=== PATIENT | male | born 1995 | race Caucasian/White ===

== ENCOUNTER 2016-12-17 14:21 | Emergency (ER) | payer OTHER ==
[2016-12-17] MEDS ORDERED: NS 0.9% 1000 ML* 1,000 ML IV SCH (14:45)
[2016-12-17 15:05] LABS: Add Diff/Slide Review? Slide Review Added; Comments Flag Yes; Hematocrit 45 % (42-52); Hemoglobin 16.3 g/dl (14.0-18.0); Mean Corpuscular HGB Conc 36 g/dl (31-36); Mean Corpuscular Hemoglobin 30 pg (27-31); Mean Corpuscular Volume 84 fL (80-94); Mean Platelet Volume 8 um3 (7.4-10.4); Red Blood Count 5.42 10^6/ul (4.0-5.4); Red Cell Distribution Width 12 % (10.5-15); White Blood Count 8.6 10^3/ul (3.5-10.8)
[2016-12-17 15:15] LABS: ALT 43 U/L (7-52); AST 34 U/L (13-39); Albumin 4.7 g/dL (3.2-5.2); Alkaline Phosphatase 93 U/L (34-104); Anion Gap 9 mmol/L (2-11); BUN/Creatinine Ratio 13.7 (8-20); Blood Urea Nitrogen 13 mg/dL (6-24); C Reactive Protein < 1.00 mg/L (< 5.00); CO2 Carbon Dioxide 25 mmol/L (22-32); Calcium 9.8 mg/dL (8.6-10.3); Chloride 102 mmol/L (101-111); Creatine Kinase 295 U/L (10-223); EGFR African American 128.7 (>60); EGFR Non-African American 100.1 (>60); Globulin 2.5 g/dL (2-4); Glucose 91 mg/dL (70-100); Lipase < 10 U/L (11.0-82.0); Potassium 3.8 mmol/L (3.5-5.0); Sodium 136 mmol/L (133-145); Total Protein 7.2 g/dL (6.4-8.9)
[2016-12-17] MEDS: NS 0.9% 1000 ML* 2,000 ML IV ONE ×2 (15:15→16:41)
--- NOTE | 2016-12-17 15:44 | RAD ---
Indication: Chest pain and pressure. Cardiovascular disease. Comparison: No relevant prior exams available on the [facility] for comparison. Technique: Upright AP 1515 hours Report: Clear lungs and pleural spaces. Negative for pneumothorax. The heart, pulmonary vasculature, and mediastinal contours are unremarkable. Unremarkable osseous structures and soft tissue contours. IMPRESSION: No evidence for acute intrathoracic disease.
[2016-12-17 15:46] LABS: TSH (Thyroid Stimulating Horm) 1.37 mcIU/mL (0.34-5.60)
[2016-12-17 16:21] LABS: Urine Bilirubin Negative (Negative); Urine Glucose Negative (Negative); Urine Nitrite Negative (Negative)
--- NOTE | 2016-12-17 17:09 | ED ---
HPI Chest Pain - HPI Summary HPI Summary: Patient is an otherwise healthy 21yo M who presents to the ED with 1 hour onset of acute midsternal chest pain described as a dull ache. After arrival, he states the pain moved to the lateral left ribs where it has remained during his stay. The pain began 1 hour prior to arrival while studying at rest. He did not take medications for relief. He denies travel history, smoking. He notes to hx of GERD but states his symptoms are usually more burning and not aching. 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 He has been on Norvasc since 9th grade and his BP remains stable since on the medication. Last US 4 years ago. He denies history of chest pain or discomfort. He denies any SOB. The pain is described as an ache, better with recumbent position and rest and worse with upright position. Recent hx includes extra stressors from school, excess caffeine this week and drinking ETOH to excess. He states he is somewhat dehydrated as well. Grandfather had KS/Stroke, denies other family history. Mother has anxiety attacks, but he denies personal history. - History of Current Complaint Chief Complaint: EDChestPainROMI Time Seen by Provider: 12/17/16 15:24 Hx Obtained From: Patient Onset/Duration: Started Hours Ago Time of Onset: 01:00 Timing: Constant Initial Severity: Mild Current Severity: Mild Pain Intensity: 3 Pain Scale Used: 0-10 Numeric Chest Pain Location: Mid Sternal Chest Pain Radiates: No Character: Dull/Aching Aggravating Factor(s): Nothing, Other: - upright position Alleviating Factor(s): Rest, Position, Other: - recumbent position Associated Signs and Symptoms: Positive: Chest Pain - Risk Factors Pulmonary Embolism Risk Factors: Negative TAD Risk Factors: Negative - Allergy/Home Medications Allergies/Adverse Reactions: Allergies Allergy/AdvReac Type Severity Reaction Status Date / Time No Known Allergies Allergy Verified 01/03/16 12:37 PMH/Surg Hx/FS Hx/Imm Hx Previously Healthy: Yes Endocrine/Hematology History: Denies: Hx Diabetes, Hx Thyroid Disease Cardiovascular History: Reports: Hx Hypertension - ON MEDICATION FOR Denies: Hx Pacemaker/ICD Respiratory History: Denies: Hx Asthma, Hx Chronic Obstructive Pulmonary Disease (COPD) GI History: Denies: Hx Ulcer History: Denies: Hx Renal Disease Sensory History: Reports: Hx Contacts or Glasses - INSTRUCTS GIVEN Denies: Hx Hearing Aid Opthamlomology History: Reports: Hx Contacts or Glasses - INSTRUCTS GIVEN Psychiatric History: Denies: Hx Panic Disorder - Surgical History Surgery Procedure, Year, and Place: RIGHT KNEE SURGERY 2013-[place] Hx Anesthesia Reactions: No - Immunization History Hx Pertussis Vaccination: No Immunizations Up to Date: Unable to Obtain/Confirm Infectious Disease History: No Infectious Disease History: Denies: Hx Hepatitis, Hx Human Immunodeficiency Virus (HIV), Traveled Outside the US in Last 30 Days - Social History Occupation: Student Lives: With Family Alcohol Use: Weekly Alcohol Amount: weekend drinking - from sunday to 12 beers Hx Substance Use: No Substance Use Type: Reports: None Hx Tobacco Use: No Smoking Status (MU): Never Smoked Tobacco Review of Systems Constitutional: Negative Negative: Fever, Chills, Fatigue Eyes: Negative Positive: Chest Pain Respiratory: Negative Negative: Shortness Of Breath, Cough Negative: Abdominal Pain, Vomiting Positive: no symptoms reported Positive: Arthralgia - left sided chest pain Neurological: Negative Negative: Headache, Weakness Psychological: Normal All Other Systems Reviewed And Are Negative: Yes Physical Exam Triage Information Reviewed: Yes Vital Signs On Initial Exam: Initial Vitals Temp Pulse Resp BP Pulse Ox 98.5 F 77 18 147/74 98 12/17/16 14:24 12/17/16 14:24 12/17/16 14:24 12/17/16 14:24 12/17/16 14:24 Vital Signs Reviewed: Yes Appearance: Positive: Well-Appearing, Well-Nourished Skin: Positive: Warm, Skin Color Reflects Adequate Perfusion Head/Face: Positive: Normal Head/Face Inspection Eyes: Positive: EOMI, CORKY, Conjunctiva Clear Neck: Positive: Supple, No Lymphadenopathy Respiratory/Lung Sounds: Positive: Clear to Auscultation, Breath Sounds Present Cardiovascular: Positive: Normal, RRR, Pulses are Symmetrical in both Upper and Lower Extremities Musculoskeletal: Positive: Normal, Strength/ROM Intact, Pain @ - reproducible pain to the left anterior chest Neurological: Positive: Speech Normal Psychiatric: Positive: Normal AVPU Assessment: Alert - Coco Coma Scale Coma Scale Total: 15 Diagnostics - Vital Signs Vital Signs Temp Pulse Resp BP Pulse Ox 12/17/16 16:00 68 16 132/59 98 12/17/16 15:30 79 16 144/65 99 12/17/16 15:00 80 16 152/69 99 12/17/16 14:40 137/66 12/17/16 14:37 64 98 12/17/16 14:24 98.5 F 77 18 147/74 98 - Laboratory Lab Results: Lab Results 12/17/16 12/17/16 12/17/16 Range/Units 14:49 14:49 14:49 WBC 8.6 (3.5-10.8) 10^3/ul RBC 5.42 H (4.0-5.4) 10^6/ul Hgb 16.3 (14.0-18.0) g/dl Hct 45 (42-52) % MCV 84 (80-94) fL MCH 30 (27-31) pg MCHC 36 (31-36) g/dl RDW 12 (10.5-15) % Plt Count 265 (150-450) 10^3/ul MPV 8 (7.4-10.4) um3 Neut % (Auto) 67.4 (38-83) % Lymph % (Auto) 22.8 L (25-47) % [place] % (Auto) 7.6 (1-9) % Eos % (Auto) 1.6 (0-6) % Baso % (Auto) 0.6 (0-2) % Absolute Neuts (auto) 5.8 (1.5-7.7) 10^3/ul Absolute Lymphs (auto) 2.0 (1.0-4.8) 10^3/ul Absolute Monos (auto) 0.7 (0-0.8) 10^3/ul Absolute Eos (auto) 0.1 (0-0.6) 10^3/ul Absolute Basos (auto) 0.1 (0-0.2) 10^3/ul Absolute Nucleated RBC 0.08 10^3/ul Nucleated RBC % 1.0 INR (Anticoag Therapy) 0.88 L (0.89-1.11) APTT 28.2 (26.0-36.3) seconds D-Dimer, Quantitative < 200 (Less Than 230) ng/mL Sodium 136 (133-145) mmol/L Potassium 3.8 (3.5-5.0) mmol/L Chloride 102 (101-111) mmol/L Carbon Dioxide 25 (22-32) mmol/L Anion Gap 9 (2-11) mmol/L BUN 13 (6-24) mg/dL Creatinine 0.95 (0.67-1.17) mg/dL Est GFR ( Amer) 128.7 (>60) Est GFR (Non-Af Amer) 100.1 (>60) BUN/Creatinine Ratio 13.7 (8-20) Glucose 91 (70-100) mg/dL Lactic Acid (0.5-2.0) mmol/L Calcium 9.8 (8.6-10.3) mg/dL Magnesium 2.0 (1.9-2.7) mg/dL Total Bilirubin 0.70 (0.2-1.0) mg/dL AST 34 (13-39) U/L ALT 43 (7-52) U/L Alkaline Phosphatase 93 (34-104) U/L Total Creatine Kinase 295 H (10-223) U/L CK-MB (CK-2) 5.4 (0.6-6.3) ng/mL Troponin I 0.00 (<0.04) ng/mL C-Reactive Protein < 1.00 (< 5.00) mg/L Total Protein 7.2 (6.4-8.9) g/dL Albumin 4.7 (3.2-5.2) g/dL Globulin 2.5 (2-4) g/dL Albumin/Globulin Ratio 1.9 (1-3) Lipase < 10 L (11.0-82.0) U/L TSH 1.37 (0.34-5.60) mcIU/mL Urine Color Urine Appearance Urine pH (5-9) Ur Specific [place] (1.010-1.030) Urine Protein (Negative) Urine Ketones (Negative) Urine Blood (Negative) Urine Nitrate (Negative) Urine Bilirubin (Negative) Urine Urobilinogen (Negative) Ur Leukocyte Esterase (Negative) Urine Glucose (Negative) 12/17/16 12/17/16 Range/Units 14:49 16:08 WBC (3.5-10.8) 10^3/ul RBC (4.0-5.4) 10^6/ul Hgb (14.0-18.0) g/dl Hct (42-52) % MCV (80-94) fL MCH (27-31) pg MCHC (31-36) g/dl RDW (10.5-15) % Plt Count (150-450) 10^3/ul MPV (7.4-10.4) um3 Neut % (Auto) (38-83) % Lymph % (Auto) (25-47) % [place] % (Auto) (1-9) % Eos % (Auto) (0-6) % Baso % (Auto) (0-2) % Absolute Neuts (auto) (1.5-7.7) 10^3/ul Absolute Lymphs (auto) (1.0-4.8) 10^3/ul Absolute Monos (auto) (0-0.8) 10^3/ul Absolute Eos (auto) (0-0.6) 10^3/ul Absolute Basos (auto) (0-0.2) 10^3/ul Absolute Nucleated RBC 10^3/ul Nucleated RBC % INR (Anticoag Therapy) (0.89-1.11) APTT (26.0-36.3) seconds D-Dimer, Quantitative (Less Than 230) ng/mL Sodium (133-145) mmol/L Potassium (3.5-5.0) mmol/L Chloride (101-111) mmol/L Carbon Dioxide (22-32) mmol/L Anion Gap (2-11) mmol/L BUN (6-24) mg/dL Creatinine (0.67-1.17) mg/dL Est GFR ( Amer) (>60) Est GFR (Non-Af Amer) (>60) BUN/Creatinine Ratio (8-20) Glucose (70-100) mg/dL Lactic Acid 1.0 (0.5-2.0) mmol/L Calcium (8.6-10.3) mg/dL Magnesium (1.9-2.7) mg/dL Total Bilirubin (0.2-1.0) mg/dL AST (13-39) U/L ALT (7-52) U/L Alkaline Phosphatase (34-104) U/L Total Creatine Kinase (10-223) U/L CK-MB (CK-2) (0.6-6.3) ng/mL Troponin I (<0.04) ng/mL C-Reactive Protein (< 5.00) mg/L Total Protein (6.4-8.9) g/dL Albumin (3.2-5.2) g/dL Globulin (2-4) g/dL Albumin/Globulin Ratio (1-3) Lipase (11.0-82.0) U/L TSH (0.34-5.60) mcIU/mL Urine Color Colorless Urine Appearance Clear Urine pH 5.0 (5-9) Ur Specific [place] 1.010 (1.010-1.030) Urine Protein Negative (Negative) Urine Ketones Negative (Negative) Urine Blood Negative (Negative) Urine Nitrate Negative (Negative) Urine Bilirubin Negative (Negative) Urine Urobilinogen Negative (Negative) Ur Leukocyte Esterase Negative (Negative) Urine Glucose Negative (Negative) Result Diagrams: 12/17/16 14:49 12/17/16 14:49 Lab Statement: Any lab studies that have been ordered have been reviewed, and results considered in the medical decision making process. Chest Pain Course/Dx - Course Course Of Treatment: Patient evaluated for chest pain x 1 hour misternally which has moved to the left lateral side. EKG NSR. Chest xray shows no acute changes. Lab work OK except for slight dehydration. 2 bags IV NS given. Patient notes to drinking 12 beers x 2 days and dehydration. Trop and D-dimer negative. Patient made aware of results and is OK for discharge. Toradol 30mg IV given. Pain is likely muscular or related to some anxiety symptoms. He is encouraged to return if symptoms remain or fail to improve with ibuprofen. Discontinue drinking ETOH, drink plenty of water and follow up with PCP in 2-3 days. Discussed treatment options including the possibile need for an echo if symptoms remain. Patient feels improves upon staying in the ED and would like to be discharged. - Chest Pain Differential Diagnosis/HQI/PQRI: ACS, Angina, Chest Wall - Diagnoses Provider Diagnoses: Chest wall pain Discharge - Discharge Plan Condition: Stable Disposition: HOME Patient Education Materials: Chest Wall Pain (ED), Chest Pain (ED) Additional Instructions: Follow up with [facility] if symptoms persist If you develop worsening pain, you need to return to the ED immediately Ibuprofen 600mg three times if any muscular symptoms remain.
[2016-12-17] MEDS ORDERED: Ketorolac INJ* 30 MG/ML 1 ML VIAL IV PUSH ONE (17:31)
[2016-12-17 18:42] VITALS: BP 153/75
== END 2016-12-17 18:42 | disposition home or self-care (01) ==
LOC: ED 14:21
DX: R07.89 Other chest pain (principal); I10 Essential (primary) hypertension
CPT/HCPCS: 36415; 71010; 80053; 81003; 82550; 82553; 83605; 83690; 83735; 84443; 84484; 85025; 85379; 85610; 85730; 86140; 93005; 96360; 96361; 96374; 99284; J1885

== ENCOUNTER 2016-12-17 21:38 | Emergency (ER) | payer OTHER ==
[2016-12-17] MEDS ORDERED: NS 0.9% 1000 ML* 1,000 ML IV ONE (22:39)
[2016-12-17] MEDS ORDERED: Pantoprazole IV* 40 MG IV ONE (22:43)
[2016-12-17] MEDS ORDERED: Iohexol 350* (CONTRAST) 500 ML MDV IV ONE (23:21)
[2016-12-17 23:52] LABS: Hematocrit 43 % (42-52); Hemoglobin 15.3 g/dl (14.0-18.0); Mean Corpuscular HGB Conc 36 g/dl (31-36); Mean Corpuscular Hemoglobin 30 pg (27-31); Mean Corpuscular Volume 85 fL (80-94); Mean Platelet Volume 8 um3 (7.4-10.4); Red Blood Count 5.11 10^6/ul (4.0-5.4); Red Cell Distribution Width 12 % (10.5-15); White Blood Count 9.6 10^3/ul (3.5-10.8)
[2016-12-18 00:06] LABS: Albumin 4.5 g/dL (3.2-5.2); Calcium 9.7 mg/dL (8.6-10.3); EGFR African American 144.4 (>60); EGFR Non-African American 112.3 (>60); Globulin 2.1 g/dL (2-4); Magnesium 2.2 mg/dL (1.9-2.7); Potassium 3.5 mmol/L (3.5-5.0); Total Bilirubin 0.6 mg/dL (0.2-1.0); Total Protein 6.6 g/dL (6.4-8.9)
[2016-12-18 00:15] LABS: TSH (Thyroid Stimulating Horm) 1.88 mcIU/mL (0.34-5.60)
[2016-12-18] MEDS ORDERED: Al Hydrox/Mg Hydrox/Simet LIQ* 30 ML UDC PO ONE (00:37)
[2016-12-18] MEDS ORDERED: Lidocaine 2% VISCOUS* 15 ML UDC PO ONE (00:37)
[2016-12-18 01:32] VITALS: BP 136/74
[2016-12-18 01:34] LABS: Benzodiazepine Urine Screen None Detected (None Detect)
--- NOTE | 2016-12-18 07:53 | RAD ---
HISTORY: Chest pain COMPARISONS: None TECHNIQUE: Multiple contiguous axial CT scans of the chest were obtained without intravenous contrast. Coronal and sagittal multiplanar reformations are also submitted for review. FINDINGS: Evaluation is limited by patient motion artifact which limits evaluation of the segmental branches to the lower lobes bilaterally. NECK AND THYROID: The lower neck and thyroid are unremarkable. CHEST WALL: There is no lower cervical, axillary, or supraclavicular lymphadenopathy by size criteria. HEART AND PERICARDIUM: The heart is unremarkable. AORTA AND PULMONARY VASCULATURE: The aorta and pulmonary vasculature are normal. MEDIASTINUM: There is no mediastinal lymphadenopathy by size criteria. There is minimal residual thymic tissue in anterior mediastinum, likely normal for age. EDUARDO: There is no hilar lymphadenopathy by size criteria. AIRWAY AND ESOPHAGUS: The airway is unremarkable, without endobronchial filling defect. The esophagus is grossly normal. LUNG PARENCHYMA: The lungs are clear. PLEURA: No pleural abnormalities are noted. UPPER ABDOMEN: The upper abdomen is unremarkable. The spleen is at the upper limits of normal in size. BONES AND SOFT TISSUES: No bone or soft tissue abnormalities are noted. OTHER: None. IMPRESSION: NO PULMONARY ARTERIAL FILLING DEFECT TO SUGGEST PULMONARY EMBOLISM.
--- NOTE | 2016-12-18 13:09 | ED ---
Calvin Beltran Rebecca, scribed for Zaynab Josue MD on 12/17/16 at 2218 . HPI Chest Pain - HPI Summary HPI Summary: Pt is a 21 y/o M who presents to ED c/o midsternal CP. Pain began earlier today at 1300 as a "tingling kind of burning and pressure." He initially believed it to be GERD so he took an OTC antacid which did not improve sx. He was then evaluated by [facility] ED where a CXR, EKG and blood work was done and he was D/C to home at approximately 1830/1900 after the pain moved slightly laterally to the left, IV Toradol and sx improvement. He had made dinner at home, then about 10 minutes after, the CP had returned. The pain is now back to being midsternal and is characterized as burning and pressure. Pain is currently moderate, ranked 6/10. Sx aggravated and alleviated by nothing. Additionally c/o nausea ( resolved). Denies SOB, calf tenderness. FHx Factor V Leiden (grandfather). Follows up with Dr. Crabtree at [facility]. - History of Current Complaint Chief Complaint: EDChestPainROMI Time Seen by Provider: 12/17/16 22:11 Hx Obtained From: Patient Onset/Duration: Started Hours Ago, Still Present Time of Onset: 13:00 Current Severity: Moderate Pain Intensity: 6 Pain Scale Used: 0-10 Numeric Chest Pain Location: Mid Sternal Chest Pain Radiates: No Character: Burning, Pressure/Squeezing Aggravating Factor(s): Nothing Alleviating Factor(s): Nothing Associated Signs and Symptoms: Positive: Nausea - resolved. Negative: Shortness of Breath, Calf Pain/Swelling - Allergy/Home Medications Allergies/Adverse Reactions: Allergies Allergy/AdvReac Type Severity Reaction Status Date / Time No Known Allergies Allergy Verified 01/03/16 12:37 PMH/Surg Hx/FS Hx/Imm Hx Endocrine/Hematology History: Denies: Hx Diabetes, Hx Thyroid Disease Cardiovascular History: Reports: Hx Hypertension - ON MEDICATION FOR Denies: Hx Pacemaker/ICD Respiratory History: Denies: Hx Asthma, Hx Chronic Obstructive Pulmonary Disease (COPD) GI History: Denies: Hx Ulcer History: Denies: Hx Renal Disease Sensory History: Reports: Hx Contacts or Glasses - INSTRUCTS GIVEN Denies: Hx Hearing Aid Opthamlomology History: Reports: Hx Contacts or Glasses - INSTRUCTS GIVEN Psychiatric History: Denies: Hx Panic Disorder - Surgical History Surgery Procedure, Year, and Place: RIGHT KNEE SURGERY 2013-[place] Hx Anesthesia Reactions: No Infectious Disease History: No Infectious Disease History: Denies: Hx Hepatitis, Hx Human Immunodeficiency Virus (HIV), Traveled Outside the [place] in Last 30 Days - Family History Known Family History: Positive: Other - Factor V Leiden (grandfather) - Social History Occupation: [employer] Alcohol Use: Weekly Alcohol Amount: weekend drinking - from sunday to 12 beers Hx Substance Use: No Substance Use Type: Reports: None Hx Tobacco Use: No Smoking Status (MU): Never Smoked Tobacco Review of Systems Positive: Chest Pain - Midsternal Negative: Shortness Of Breath Positive: Nausea - resolved Positive: Other - NEGATIVE: calf tenderness All Other Systems Reviewed And Are Negative: Yes Physical Exam Triage Information Reviewed: Yes Vital Signs On Initial Exam: Initial Vitals Temp Pulse Resp BP Pulse Ox 98.1 F 71 20 160/88 98 12/17/16 21:41 12/17/16 21:41 12/17/16 21:41 12/17/16 21:41 12/17/16 21:41 Vital Signs Reviewed: Yes Appearance: Positive: Well-Appearing, Well-Nourished, Pain Distress Skin: Positive: Warm, Skin Color Reflects Adequate Perfusion Head/Face: Positive: Normal Head/Face Inspection Eyes: Positive: Normal ENT: Positive: Normal ENT inspection Neck: Positive: Supple Respiratory/Lung Sounds: Positive: Clear to Auscultation, Breath Sounds Present Cardiovascular: Positive: RRR, Pulses are Symmetrical in both Upper and Lower Extremities, Other - Brisk capillary refill, No calf tenderness. Negative: Murmur Abdomen Description: Positive: Nontender, Soft Bowel Sounds: Positive: Present Musculoskeletal: Positive: Normal, Strength/ROM Intact. Negative: Edema Left, Edema Right Neurological: Positive: Sensory/Motor Intact, Alert, Oriented to Person Place, Time, Facial Symmetry, Speech Normal Psychiatric: Positive: Normal Diagnostics - Vital Signs Vital Signs Temp Pulse Resp BP Pulse Ox 12/17/16 21:41 98.1 F 71 20 160/88 98 - Laboratory Lab Results: Lab Results 12/17/16 12/17/16 12/17/16 Range/Units 22:55 22:55 22:55 WBC 9.6 (3.5-10.8) 10^3/ul RBC 5.11 (4.0-5.4) 10^6/ul Hgb 15.3 (14.0-18.0) g/dl Hct 43 (42-52) % MCV 85 (80-94) fL MCH 30 (27-31) pg MCHC 36 (31-36) g/dl RDW 12 (10.5-15) % Plt Count 244 (150-450) 10^3/ul MPV 8 (7.4-10.4) um3 Neut % (Auto) 67.6 (38-83) % Lymph % (Auto) 23.2 L (25-47) % [place] % (Auto) 7.6 (1-9) % Eos % (Auto) 1.1 (0-6) % Baso % (Auto) 0.5 (0-2) % Absolute Neuts (auto) 6.5 (1.5-7.7) 10^3/ul Absolute Lymphs (auto) 2.2 (1.0-4.8) 10^3/ul Absolute Monos (auto) 0.7 (0-0.8) 10^3/ul Absolute Eos (auto) 0.1 (0-0.6) 10^3/ul Absolute Basos (auto) 0 (0-0.2) 10^3/ul Absolute Nucleated RBC 0.01 10^3/ul Nucleated RBC % 0.1 INR (Anticoag Therapy) (0.89-1.11) Sodium 139 (133-145) mmol/L Potassium 3.5 (3.5-5.0) mmol/L Chloride 106 (101-111) mmol/L Carbon Dioxide 26 (22-32) mmol/L Anion Gap 7 (2-11) mmol/L BUN 12 (6-24) mg/dL Creatinine 0.86 (0.67-1.17) mg/dL Est GFR ( Amer) 144.4 (>60) Est GFR (Non-Af Amer) 112.3 (>60) BUN/Creatinine Ratio 14.0 (8-20) Glucose 96 (70-100) mg/dL Lactic Acid 1.0 (0.5-2.0) mmol/L Calcium 9.7 (8.6-10.3) mg/dL Magnesium 2.2 (1.9-2.7) mg/dL Total Bilirubin 0.60 (0.2-1.0) mg/dL AST 29 (13-39) U/L ALT 40 (7-52) U/L Alkaline Phosphatase 86 (34-104) U/L Total Creatine Kinase 247 H (10-223) U/L CK-MB (CK-2) 4.1 (0.6-6.3) ng/mL Troponin I 0.00 (<0.04) ng/mL Total Protein 6.6 (6.4-8.9) g/dL Albumin 4.5 (3.2-5.2) g/dL Globulin 2.1 (2-4) g/dL Albumin/Globulin Ratio 2.1 (1-3) TSH 1.88 (0.34-5.60) mcIU/mL Urine Opiates Screen (None Detect) Ur Barbiturates Screen (None Detect) Ur Phencyclidine Scrn (None Detect) Ur Amphetamines Screen (None Detect) U Benzodiazepines Scrn (None Detect) Urine Cocaine Screen (None Detect) U Cannabinoids Screen (None Detect) 12/17/16 12/18/16 Range/Units 22:55 01:03 WBC (3.5-10.8) 10^3/ul RBC (4.0-5.4) 10^6/ul Hgb (14.0-18.0) g/dl Hct (42-52) % MCV (80-94) fL MCH (27-31) pg MCHC (31-36) g/dl RDW (10.5-15) % Plt Count (150-450) 10^3/ul MPV (7.4-10.4) um3 Neut % (Auto) (38-83) % Lymph % (Auto) (25-47) % [place] % (Auto) (1-9) % Eos % (Auto) (0-6) % Baso % (Auto) (0-2) % Absolute Neuts (auto) (1.5-7.7) 10^3/ul Absolute Lymphs (auto) (1.0-4.8) 10^3/ul Absolute Monos (auto) (0-0.8) 10^3/ul Absolute Eos (auto) (0-0.6) 10^3/ul Absolute Basos (auto) (0-0.2) 10^3/ul Absolute Nucleated RBC 10^3/ul Nucleated RBC % INR (Anticoag Therapy) 0.90 (0.89-1.11) Sodium (133-145) mmol/L Potassium (3.5-5.0) mmol/L Chloride (101-111) mmol/L Carbon Dioxide (22-32) mmol/L Anion Gap (2-11) mmol/L BUN (6-24) mg/dL Creatinine (0.67-1.17) mg/dL Est GFR ( Amer) (>60) Est GFR (Non-Af Amer) (>60) BUN/Creatinine Ratio (8-20) Glucose (70-100) mg/dL Lactic Acid (0.5-2.0) mmol/L Calcium (8.6-10.3) mg/dL Magnesium (1.9-2.7) mg/dL Total Bilirubin (0.2-1.0) mg/dL AST (13-39) U/L ALT (7-52) U/L Alkaline Phosphatase (34-104) U/L Total Creatine Kinase (10-223) U/L CK-MB (CK-2) (0.6-6.3) ng/mL Troponin I (<0.04) ng/mL Total Protein (6.4-8.9) g/dL Albumin (3.2-5.2) g/dL Globulin (2-4) g/dL Albumin/Globulin Ratio (1-3) TSH (0.34-5.60) mcIU/mL Urine Opiates Screen None detected (None Detect) Ur Barbiturates Screen None detected (None Detect) Ur Phencyclidine Scrn None detected (None Detect) Ur Amphetamines Screen None detected (None Detect) U Benzodiazepines Scrn None detected (None Detect) Urine Cocaine Screen None detected (None Detect) U Cannabinoids Screen None detected (None Detect) Result Diagrams: 12/17/16 22:55 12/17/16 22:55 Lab Statement: Any lab studies that have been ordered have been reviewed, and results considered in the medical decision making process. - CT CTA Chest CT Interpretation: No Acute Changes - No definite PE, but evaluation limited by motion artifact. No aortic dissection or aneurysm. No pneumonia or pleural effusions. Minimal anterior mediastinal soft tissue, probably thymic. Minimal splenomegaly. ED physciain reviewed radiology report and agrees. CT Interpretation Completed By: Radiologist - EKG 2149 Cardiac Rate: NL - 72 bpm EKG Rhythm: Sinus Rhythm EKG Interpretation: Nl AV/IV CT, nl QTC, nl axis, no acute changes EKG Comparison: No Significant Change - Unchanged from EKG earlier today Re-Evaluation - Re-Evaluation First Eval Re-Evaluation Time: 00:39 Comment: Updating the pt on results. He continues to have a bit of left anterior chest pain what is somewhat reproducible with palpation. Chest Pain Course/Dx - Course Assessment/Plan: Pt is a 21 y/o M who presents to ED c/o midsternal CP. Pain began earlier today at 1300 as a "tingling kind of burning and pressure." He initially believed it to be GERD so he took an OTC antacid which did not improve sx. He was then evaluated by [facility] ED where a CXR, EKG and blood work was done and he was D/C to home at approximately 1830/1900 after the pain moved slightly laterally to the left, IV Toradol and sx improvement. He had made dinner at home, then about 10 minutes after, the CP had returned. The pain is now back to being midsternal and is characterized as burning and pressure. Pain is currently moderate, ranked 6/10. Sx aggravated and alleviated by nothing. Additionally c/o nausea (resolved). Denies SOB, calf tenderness. FHx Factor V Leiden (grandfather). Follows up with Dr. Crabtree at [facility]. EKG is sinus rhythm with no acute changes. Chest/Thorax CTA revelas no definite PE with mild splenomegaly. CRK of 247. In the ED course, pt received Maalox, Xylocaine, Protonix and fluids. Pt will be D/C to home with Dx of elevated CK, chest pain, GERD, dehydration and a follow up with his PCP. He understands and agrees. Elevated BP noted and advised to f/u with PCP. Patient medications reviewed this visit. - Diagnoses Provider Diagnoses: Elevated creatine kinase, Chest pain, GERD (gastroesophageal reflux disease), Dehydration Discharge - Discharge Plan Condition: Stable Disposition: HOME Patient Education Materials: Chest Pain (ED), Gastroesophageal Reflux Disease ( ED) Referrals: MAVIS Xavier [Primary Care Provider] - Additional Instructions: You CTA of the chest did not show a pulmonary embolus or any cause for your chest pain. It is an unofficial report at this time but this preliminary report did mention "minimal splenomegaly" which can be due to a viral syndrome or mono. The spleen is in your abdomen on the left side. Your family doctor can follow up on this finding, and also check the final reading of the CTA. Your labs did not show any evidence of a heart attack at either ER visit. Your CK (muscle enzyme) level was elevated at 295 on the first visit and 247 on the second visit. (normal is 223). Be sure to continue to hydrate to bring this number down. When the CK level is very high, it becomes rhabdomyolysis and can harm your kidneys. Be cautious with your sports workouts as this enzyme may be elevated due to vigorous workouts. Keep your appointment for your endoscopy, and continue your ranitidine. We gave you one dose of Maalox with viscous lidocaine that we call a "GI cocktail", to try to improve your symptoms. Have definite follow up with your doctor to discuss evaluation for Factor V Leiden, optimizing treatment for GERD and to discuss the CK level and the minimal splenomegaly. Return to the ER if you have any new or worsening symptoms. The documentation as recorded by the Calvin hughes Rebecca accurately reflects the service I personally performed and the decisions made by me, Zaynab Josue MD.
== END 2016-12-18 01:31 | disposition home or self-care (01) ==
LOC: ED 21:38
DX: R07.89 Other chest pain (principal); E86.0 Dehydration; K21.9 Gastro-esophageal reflux disease without esophagitis; R74.8 Abnormal levels of other serum enzymes; I10 Essential (primary) hypertension
CPT/HCPCS: 36415; 71275; 80053; 80307; 82550; 82553; 83605; 83735; 84443; 84484; 85025; 85610; 93005; 96361; 96374; 99283; A9270-GY; Q9967